=== PATIENT | male | born 1980 | race Hispanic/Latino ===

== ENCOUNTER 2019-07-18 10:12 | Emergency (ER) | payer OTHER ==
[~2019-07-18] VITALS: Ht 170.2 cm; Wt 79.4 kg
[2019-07-18] MEDS ORDERED: IBU800 MG PO (10:52)
[2019-07-18] MEDS ORDERED: ULTRAM50 MG PO (10:52)
[2019-07-18] MEDS ORDERED: STOOL SOFTENER250 MG PO (10:56)
[2019-07-19] MEDS ORDERED: ULTRAM50 MG PO (16:01)
[2019-07-19] MEDS ORDERED: HYDROCODON-ACE1 EAC8 PO (16:01)
== END 2019-07-18 12:54 | disposition home or self-care (01) ==
LOC: ED 10:12
DX: S82.141D Displaced bicondylar fracture of right tibia, subsequent encounter for closed fracture with routine healing (principal); X58.XXXD Exposure to other specified factors, subsequent encounter; Z79.899 Other long term (current) drug therapy
CPT/HCPCS: 93971; 99283-25

== ENCOUNTER 2019-07-19 09:00 | Day surgery (SDC) | payer OTHER ==
[~2019-07-19] VITALS: Ht 170.2 cm; Wt 79.4 kg
[~2019-07-19 09:00] MED LIST: IBU800 MG PO; STOOL SOFTENER250 MG PO; ULTRAM50 MG PO
--- NOTE | 2019-07-19 15:39 | NUR ---
1530: PATIENT BACK IN DAY SURGERY ROOM FROM PACU. C/O PAIN 9/10 WHEN AWAKE. DROWSY. PATIENT FALLS ASLEEP WHEN NOT DISTURB. AWAKENS EASILY WITH VOICE. VS CHECKED. RIGHT KNEE DRESSING CDI. ICE PACK TO RIGHT KNEE. C/O NUMBNESS/TINGLING IN RIGHT FOOT. PEDAL PULSES PALPABLE. RIGHT FOOT/TOES WARM. CAP REFILL WNL. RIGHT KNEE BRACE IN PLACE. SCD ON LEFT LEG. TOLERATING WATER. IV SITE WNL. GUARDS AT BEDSIDE. CALL LIGHT WITHIN REACH.
[2019-07-19] MEDS ORDERED: HYDROCODON-ACE1 EAC8 PO (16:01)
[2019-07-19] MEDS ORDERED: ULTRAM50 MG PO (16:01)
--- NOTE | 2019-07-19 16:16 | NUR ---
07/19/19 1616 Mita Rizo 1353 PT ARRIVED IN PACU C/O R KNEE PAIN. ANESTHESIA GAVE PAIN MEDICATION. 1355 PT APNEIC. STIMULATED TO DEEP BREATH. 1405 XRAY OF R KNEE DONE. PT C/O R KNEE PAIN, THEN FALLS BACK TO SLEEP. ICE PLACED ON KNEE. BREG BRACE IN PLACE FROM SURGERY. TRANSPORT GUARDS AT BEDSIDE. 1415 C/O R KNEE PAIN 04/19. NEW ORDERS RECEIVED. 1433 OFIRMEV 1GM IV INFUSING. TAKING SIPS OF WATER. 1448 FENTANYL 25MCG GIVEN IVP FOR 04/19 PAIN IN R KNEE. 1500 PT'S SATS DROPPED TO 85-88% ON RA. ENCOURAGED COUGH, DEEP BREATHING. O2 AT 2L VIA NC PLACED. SATS INCREASED TO 95%. 1505 PT APNEIC. ENCOURAGED COUGH, DEEP BREATHING. 1520 PT'S PAIN DOWN TO 8/10. TO DS WITH TRANSPORT GUARDS.
--- NOTE | 2019-07-19 16:32 | NUR ---
PATIENT GIVEN JELLO TO EAT. PATIENT BECAME NAUSEAOUS AFTER EATING JELLO. MEDICATED WITH ZOFRAN. VS CHECKED. NAUSEA THEN RESOLVED. PATIENT REQUESTED PAIN PILL FOR 10/10 PAIN IN RIGHT KNEE. PATIENT GIVEN 1 TAB OF NORCO. GUARDS AT BEDSIDE.
--- NOTE | 2019-07-19 16:57 | NUR ---
TALKED TO DR. ALATORRE ABOUT SENDING THE PATIENT TO THE FLOOR. HE SAID TO SEND TO THE FLOOR AND TREAT HIS PAIN WITH THE IV MOEPHINE.
--- NOTE | 2019-07-19 17:30 | NUR ---
Patient arrives to the unit via stretcher. Four person transfer to hospital bed. Patient nauseous and vomiting, emesis bag provided. Warm blanket provided, vital signs taken. Patient denies pain at this time. Two guards at bedside. Guards asked to shackle patient, they obliged. Call light within reach.
--- NOTE | 2019-07-19 17:33 | NUR ---
1715) TOOK PATIENT DOWN TO 119 AND GAVE REPORT ON PATIENT. VOMITING WHILE ROLLING DOWN THE COSTA.
--- NOTE | 2019-07-19 18:25 | NUR ---
CALLED TO CLARIFY DISCHARGE PLAN. SAID IF HE MEETS DISCHARGE PARAMETERS HE CAN DISCHARGE TONIGHT. ORDERS ALREADY WRITTEN IN CHART.
--- NOTE | 2019-07-19 19:50 | NUR ---
pt VOMITTING, 300 ML EMESIS, CLEAR/PINK IN COLOR. PRN NAUSEA MEDICATION ADMINISTERED. pt UP TO SIDE OF BED, ABLE TO STAND WITH WALKER, NON-WEIGHT BEARING 2PA. ON BSC AT THIS TIME FOR VOID ATTEMPT. RNS IN ROOM. GUARDS AT BEDSIDE. pt RATES PAIN 7/10, DENIES NEED FOR MEDICATION AT THIS TIME.
--- NOTE | 2019-07-19 21:09 | NUR ---
PT BACK TO BED WITH ONE ASSIST, FWW. UNABLE TO VOID AFTER SITTING ON BSC FOR 20-30 MIN. BLADDER SCANNED FOR 393. PT STATED IS THAT "BAD", EDUCATED NO, HE THEN SAID "IT'S ALL IN MY HEAD ?". LEFT ROOM, PT WITH SUPPLIES WITHIN REACH, EATING A CRACKER. 2 CORRECTIONAL OFFICERS AT BEDSIDE.
--- NOTE | 2019-07-19 21:49 | NUR ---
PT IN BED, NO DISTRESS NOTED. COFFEE WAS OFFERED TO HELP TO START URINATION. NO NAUSEA, NO DIZINESS, DENIED PAIN.
--- NOTE | 2019-07-19 22:50 | NUR ---
PT IN BED. DID NOT VOID. NO DISTRESS NOTED. BREATHING NORMALLY. FLUIDS PROVIDED, DONE WITH ASSESSMENTS. PT DENIED PAIN AT THE MOMENT. NO NAUSEA.
--- NOTE | 2019-07-19 22:58 | NUR ---
CHICKEN NOODLES SOUP WAS OFFERED TO PT. STILL NO VOIDING. NO NAUSEA. NO DISTRESS NOTED.
--- NOTE | 2019-07-19 23:42 | NUR ---
CALL LIGHT ANSWERED. pt ABLE TO VOID 200 MLS. C/O NAUSEA, HOLDING EMESIS BAG. PRN MEDICATION ADMINISTERED. NO EMESIS. C/O 7/10 PAIN IN RIGHT KNEE. ICE PACK PROVIDED. PRN PO PAIN MEDICATION ADMINISTERED. pt TOLERATED SOUP, PO FLUIDS, CRACKERS WITHOUT EMESIS.
--- NOTE | 2019-07-20 00:34 | NUR ---
IV WAS TAKEN OUT. PT DICHARGED TO [facility], ACCOMPANIED BY GUARDS. THIS NURSE CALLED TO [facility] AND GAVE REPORT. THE DISCHARGE PAPERWORK WAS GIVEN TO THE GUARDS, DISCHARGE INSTRUCTIONS WERE GIVEN VERBALLY TO PT.
--- NOTE | 2019-07-20 00:43 | NUR ---
PT VOIDED 200 ML
--- NOTE | 2019-07-20 09:58 | OR ---
[facility] [address], [place] [address] Signed DATE OF OPERATION: 07/19/2019 SURGEON: Lidia Alatorre MD PREOPERATIVE DIAGNOSES: 1. Tibial plateau fracture, right. 2. Lateral meniscal tear. POSTOPERATIVE DIAGNOSES: 1. Tibial plateau fracture, right. 2. Lateral meniscal tear. PROCEDURES: 1. Open reduction and internal fixation of tibial plateau fracture. 2. Lateral meniscal repair. ANESTHESIA: General. SPECIMENS AND COMPLICATIONS: There were no specimens or complications. TOURNIQUET TIME: 90 minutes. WHAT WAS DONE: The patient was taken to the operating room. After anesthesia was induced and airway secured, the right lower extremity was positioned prepped and draped in the routine sterile fashion. The leg was exsanguinated with elevation and pneumatic tourniquet was inflated to 300 mmHg pressure. A hockey-stick incision was made over the lateral tibial plateau through skin and subcutaneous tissue. A posterolateral flap was gently retracted laterally. We then able to open the primary fracture line with a small osteotome and opened it. It was appreciated that there was an anterior lateral meniscal tear. We therefore reapproximated the primary joint using an impactor after opened the primary fracture line. We actually had excellent direct visualization of the joint. We got an anatomic reconstruction of the joint surface. We then clamped the primary fracture line closed and secured it with a couple of wires. Once we were happy with the alignment and position, a proximal lateral tibial plate that was made secure making a raft of three Electronically Signed By: LIDIA ALATORRE MD 07/20/19 0958 PATIENT NAME: MERI HUERTA OPERATIVE REPORT DATE OF : 82 REPORT #: [id number] PHYSICIAN: LIDIA ALATORRE MD PCP: RAFITA JUDGE REPORT IS CONFIDENTIAL AND NOT TO BE RELEASED WITHOUT AUTHORIZATION [facility] [address], [place] [address] Signed screws approximately followed by a distal fixation and then placement of the kickstand screws. This gave us a solid and secure construct. The knee was then copiously irrigated. We then passed 0 FiberWire sutures through the capsule, grabbed the lateral meniscus, and reapproximated the tear back to the capsule. We then closed the anterolateral arthrotomy with interrupted sutures of FiberWire and closed the wound in a routine fashion. Sterile dressings were applied. There were a bulky dressing and a hinged brace were placed. The patient was awakened, taken to recovery room, where he arrived in stable condition. Counts were correct and antibiotic protocols were followed. Lidia Alatorre MD WFB/MODL /[id number] Copies: ~ Electronically Signed By: LIDIA ALATORRE MD 07/20/19 0958 PATIENT NAME: MERI HUERTA [facility] OPERATIVE REPORT DATE OF : 82 REPORT #: [id number] PHYSICIAN: LIDIA ALATORRE MD PCP: RAFITA JUDGE REPORT IS CONFIDENTIAL AND NOT TO BE RELEASED WITHOUT AUTHORIZATION
== END 2019-07-20 00:30 ==
LOC: DS 09:00 → OPS 09:00 → DS 10:00 → MS 17:35 → OPS 07-20 00:30
PROVIDERS: Orthopaedic Surgery
PROC: 0SQC0ZZ Repair Right Knee Joint, Open Approach (ICD-10-PCS; 2019-07-19)
PROC: 0QSG04Z Reposition Right Tibia with Internal Fixation Device, Open Approach (ICD-10-PCS; principal; 2019-07-19 10:00)
DX: S82.121A Displaced fracture of lateral condyle of right tibia, initial encounter for closed fracture (principal); S83.281A Other tear of lateral meniscus, current injury, right knee, initial encounter; Z79.899 Other long term (current) drug therapy; X58.XXXA Exposure to other specified factors, initial encounter
CPT/HCPCS: 01392; 64445; 73560; 76942; C1713; C1769; J0131; J0690; J0735; J1100; J1885; J2001; J2250; J2270; J2405; J2704; J2795; J3010; J7121